=== PATIENT | male | born 1970 | race Caucasian/White ===

== ENCOUNTER → 2017-11-01 | Outpatient (CLI) | payer BC ==
--- NOTE | 2017-11-01 15:42 | XR ---
EXAMINATION TYPE: XR chest 2V DATE OF EXAM: 11/01/2017 COMPARISON: NONE HISTORY: Chest pain TECHNIQUE: Frontal and lateral views of the chest are obtained. FINDINGS: There is no focal air space opacity. No evidence for pneumothorax. No pleural effusion. The cardiac silhouette size is within normal limits. The osseous structures are grossly intact. IMPRESSION: 1. No acute cardiopulmonary process.
== END | disposition home or self-care (01) ==
LOC: RADXRMAIN 15:26
PROVIDERS: ATTEND Orthopaedic Surgery
DX: Z01.818 Encounter for other preprocedural examination (principal)
CPT/HCPCS: 71046

== ENCOUNTER 2017-11-05 06:31 | Day surgery (SDC) | payer BC, OTHER ==
[2017-11-03 17:25] VITALS: BMI 39.4
--- NOTE | 2017-11-04 12:33 | HP ---
HISTORY AND PHYSICAL CHIEF COMPLAINT: Left shoulder pain. 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 He is having persistent pain with overhead use and at night. He notes frequent popping. He has tried therapy with minimal improvement. Currently he is off work. PAST MEDICAL HISTORY: Significant for reflux disease and depression. PAST SURGICAL HISTORY: Significant for previous knee and hand surgery. CURRENT MEDICATIONS: 1. Adipex. 2. Hyzaar. 3. Ibuprofen. 4. Prilosec. 5. Trazodone. He denies drug allergies. FAMILY HISTORY: Significant for cancer. SOCIAL HISTORY: Significant for previous tobacco use; however, he quit in 2007. He also notes previous alcohol use. REVIEW OF SYSTEMS: A 16-point review of systems is otherwise reviewed and is noncontributory. PHYSICAL EXAMINATION: On examination, the patient is approximately 6 foot 3, 380 pounds of endomorphic habitus. HEENT is nonfocal. Neck is supple. On examination of his left shoulder, he is tender about the anterior subacromial space. He has mild subacromial crepitus. He has a Andrea deformity of the left upper biceps. Active range of motion left shoulder , forward elevation 160 degrees, external rotation with the arm at 50 degrees, internal rotation to T12. Motor strength is 5-/5 for external rotation with arm at side , 4+/5 for abduction. Impingement test, Neer tests are positive. Lift off test is negative. Distal neurovascular exam appears intact, otherwise in the left upper extremity. IMPRESSION: 1. Left proximal biceps rupture. 2. Left shoulder probable rotator cuff tear. RECOMMENDATIONS: I talked to the patient at length regarding his condition and treatment options. At this point, he remains quite symptomatic despite conservative measures. He is unable to have an MRI because of severe claustrophobia. He opts to proceed with surgery. We will plan to proceed with arthroscopic evaluation with probable subacromial decompression, rotator cuff debridement versus repair, and biceps debridement. We will likely perform that as an outpatient procedure. This was discussed at length in layman's term. MMODL / IJN: [id number] / [facility] SYSTEMJulien
[~2017-11-05 06:31] MED LIST: DEXAMETHASONE SOD PHOSPHATE 10 MG/ML 1 ML VIAL IV ONE; LACTATED RINGERS 1,000 ML IV SCH; MIDAZOLAM 2 MG/2 ML VIAL IV PRN; ONDANSETRON 4 MG/2 ML VIAL IVP ONE; SCOPOLAMINE 1.5MG/72HR PATCH TRANSDERM ONE; fentaNYL (PF) 50 MCG/ML 2 ML AMP IV PRN
[2017-11-05] MEDS ORDERED: LIDOCAINE 1% 20 ML VIAL (10MG/ML) FOR IV START INTRADERMA ONE (07:13)
[2017-11-05] MEDS ORDERED: MIDAZOLAM 2 MG/2 ML VIAL ONE (08:10)
[2017-11-05] MEDS ORDERED: PROPOFOL 10 MG/ML 20 ML VIAL IV ONE (08:10)
[2017-11-05] MEDS ORDERED: LIDOCAINE 1% INJ 10MG/ML (20 ML MDV) ONE (08:10)
[2017-11-05] MEDS ORDERED: fentaNYL (PF) 50 MCG/ML 2 ML AMP ONE (08:10)
[2017-11-05] MEDS ORDERED: ROCURONIUM BROMIDE 10 MG/ML 10 ML VIAL IV ONE (08:10)
[2017-11-05] MEDS ORDERED: KETOROLAC 30 MG/ML 1 ML VIAL ONE (08:10)
[2017-11-05] MEDS ORDERED: ROPIVACAINE 5 MG/ML 30 ML VIAL ONE (08:10)
[2017-11-05] MEDS ORDERED: GLYCOPYRROLATE 0.2 MG/ML 2 ML VIAL ONE (08:10)
[2017-11-05] MEDS ORDERED: PHENYLEPHRINE-0.9% NACL SYG 1 MG/10 ML SYRINGE ONE (08:10)
[2017-11-05] MEDS ORDERED: NEOSTIGMINE 1 MG/ML 10 ML VIAL ONE (08:10)
--- NOTE | 2017-11-05 09:50 | P.OP ---
Date of Procedure: 11/05/17 Preoperative Diagnosis: Left shoulder impingement/proximal biceps rupture/probable rotator cuff tear Postoperative Diagnosis: 3 cm rotator cuff tear/intra-articular rupture long head of the biceps Procedure(s) Performed: Left shoulder arthroscopic rotator cuff repair/subacromial decompression/biceps debridement Implants: Arthrex 4.75 mm swivel lock anchor 4 Anesthesia: anjelica VELAZQUEZ Surgeon: Latrell Love Pneumatic Jack Operator #1: Mookie Montez Estimated Blood Loss (ml): 10 Pathology: none sent Condition: stable Disposition: PACU Indications for Procedure: The patient is a 47-year-old male who presents with progressive left shoulder pain after a previous injury. He tried conservative measures without significant relief. A discussion of the risks and benefits of operative intervention versus continued conservative measures was made with the patient. He opted to proceed with surgery. Operative risks to include infection, neurovascular injury, development of blood clots, possible tendon rerupture, possible postoperative stiffness and need for subsequent procedures was discussed. Informed consent was obtained. Operative Findings: As below Description of Procedure: The patient was brought to the operating room, and after induction of general anesthesia was placed in a beachchair position. He did have a preoperative interscalene block by anesthesia for postoperative pain control. After induction of general anesthesia, I examined the left shoulder. There was no gross block to passive motion or instability. The left upper extremity was prepped and draped in normal fashion. The bony outlines the acromion, distal clavicle, and coracoid process were outlined with a skin marker. The glenohumeral joint was inflated with 50 mL of saline utilizing a spinal needle from posterior approach. A posterior portal was made through a 5 mm skin incision 1 cm medial and inferior to the posterior lateral border the acromion. A blunt trocar was used to easily into the joint. Diagnostic arthroscopy was performed. An anterior portal was made just lateral to the coracoid process entering the joint above the subscapularis tendon. The subscapularis appeared intact. A rupture of the long head of biceps was noted with residual tissue impinging in the joint. This was debrided with a motorized shaver back to the superior labrum. The superior labrum appeared intact. The anterior labrum was intact. No real degenerative changes were noted involving the glenoid or the humeral head. On inspection the rotator cuff, there was a full-thickness tear involving the supraspinatus and a portion of infraspinatus without significant retraction. The posterior labrum was intact. The inferior recess was inspected. The arthroscope was then placed into the subacromial space. A lateral portal was made through a 5 mm skin incision 2 cm inferior to the anterior lateral border of the acromion. The soft tissue on the undersurface the acromion was debrided with a motorized shaver and electrocautery clearly defining the anterior medial and lateral borders as well as the distal clavicle. The coracoacromial ligament was detached from the anterior acromion with electrocautery. An anterior inferior acromioplasty is performed with a motorized sarika starting anterolateral, then extending this posteriorly, then extending this medially. I was able to convert to a flat acromion. This was verified from the posterior and lateral viewing portals. The rotator cuff was easily localized back to the greater tuberosity. The greater tuberosity was lightly decorticating utilizing a motorized bur down to bleeding bony surface. An accessory superior lateral portals made off the lateral edge of the acromion for anchor placement. The appropriate starting awl was utilized and 4.75 mm swivel lock anchors 2 were inserted in the greater tuberosity with good purchase. #2 fiber tape was then passed to the rotator cuff with a scorpion suture passer. These were then crisscrossed and a lateral row created utilizing 4.75 mm swivel lock anchor 2. I was able to compress the rotator cuff over the saxman footprint. Final arthroscopic view showed adequate repair and compression at the saxman footprint. The arthroscope was then removed. The portals were closed with simple 3-0 nylon suture. A sterile dressing was applied. The patient was then awoken from general anesthesia and transferred to recovery room in good condition. Blood loss was estimated at 10 mL. No complications were incurred. Sponge and needle counts were correct in the case. Vickey GARCIA assisted during the case with arm positioning, anchor placement, and rotator cuff repair.
[2017-11-05 09:55] VITALS: TEMP 98.5
[2017-11-05] MEDS ORDERED: LACTATED RINGERS 1,000 ML IV ONE (10:28)
[2017-11-05 11:02] VITALS: RESP 16
[2017-11-05 11:36] VITALS: BP 134/85; PULSE 88
== END 2017-11-05 11:42 | disposition home or self-care (01) ==
LOC: OR 06:31
PROVIDERS: ATTEND Orthopaedic Surgery
DX: S46.012A Strain of muscle(s) and tendon(s) of the rotator cuff of left shoulder, initial encounter (principal); M75.42 Impingement syndrome of left shoulder; S46.212A Strain of muscle, fascia and tendon of other parts of biceps, left arm, initial encounter; I10 Essential (primary) hypertension; J44.9 Chronic obstructive pulmonary disease, unspecified; K21.9 Gastro-esophageal reflux disease without esophagitis; F32.9 Major depressive disorder, single episode, unspecified; X58.XXXA Exposure to other specified factors, initial encounter; Z87.891 Personal history of nicotine dependence; Z79.899 Other long term (current) drug therapy
CPT/HCPCS: 29827; 29826; 29822; 64415; C1713; C1894; J2250; J1100; J2710; J0690; J2405; J2001; J3010; J1885; J2795; J2370; J2704

== ENCOUNTER → 2018-05-13 | Outpatient (CLI) | payer BC ==
--- NOTE | 2018-05-13 11:38 | ECHOF ---
Referral Reason:I10 Hypertension R60.0 Edema of extremities MEASUREMENTS -------- HEIGHT: 188.0 cm WEIGHT: 151.5 kg BP: RVIDd: 3.0 cm (< 3.3) IVSd: 1.3 cm (0.6 - 1.1) LVIDd: 4.3 cm (3.9 - 5.3) LVPWd: 1.5 cm (0.6 - 1.1) IVSs: 2.2 cm LVIDs: 2.0 cm LVPWs: 2.0 cm Ao Diam: 3.3 cm (2.0 - 3.7) AV Cusp: 2.6 cm (1.5 - 2.6) LA Diam: 3.4 cm (2.7 - 3.8) MV EXCURSION: 16.790 mm (> 18.000) MV EF SLOPE: 90 mm/s (70 - 150) EPSS: 0.6 cm MV E Dwayne: 0.70 m/s MV DecT: 133 ms MV A Dwayne: 0.67 m/s MV E/A Ratio: 1.05 RAP: 5.00 mmHg RVSP: 8.79 mmHg FINDINGS -------- Sinus rhythm. This was a technically difficult study with suboptimal views. The left ventricular size is normal. There is moderate concentric left ventricular hypertrophy. O verall left ventricular systolic function is normal with, an EF between 55 - 60 %. The right ventricle is normal in size. The left atrial size is normal. The right atrial size is normal. Lumason used The aortic valve is trileaflet and appears structurally normal. There is trace mitral regurgitation. Trace tricuspid regurgitation present. The right ventricular systolic pressure, as measured by Dopp ler, is 8.79mmHg. Pulmonic valve appears structurally normal. The aortic root size is normal. IVC Not well visulized. The pericardium is normal. CONCLUSIONS -------- 1. Sinus rhythm. 2. This was a technically difficult study with suboptimal views. 3. The left ventricular size is normal. 4. There is moderate concentric left ventricular hypertrophy. 5. Overall left ventricular systolic function is normal with, an EF between 55 - 60 %. 6. The right ventricle is normal in size. 7. The left atrial size is normal. 8. The right atrial size is normal. 9. Lumason used 10. The aortic valve is trileaflet and appears structurally normal. 11. There is trace mitral regurgitation. 12. Trace tricuspid regurgitation present. 13. The right ventricular systolic pressure, as measured by Doppler, is 8.79mmHg. 14. Pulmonic valve appears structurally normal. 15. The aortic root size is normal. 16. IVC Not well visulized. 17. The pericardium is normal. ELECT[employer]TACTS ADJUSTER: Suad Gongora RDCS
== END | disposition home or self-care (01) ==
LOC: RADECHMAIN 08:22
PROVIDERS: ATTEND Internal Medicine
DX: I51.7 Cardiomegaly (principal); R60.0 Localized edema
CPT/HCPCS: 93306; Q9950

== ENCOUNTER → 2019-02-27 | Outpatient (CLI) | payer BC ==
--- NOTE | 2019-02-27 09:24 | CT ---
EXAMINATION TYPE: CT lumbar spine wo con DATE OF EXAM: 02/27/2019 8:28 AM COMPARISON: Lumbar spine x-ray March 25, 2010 HISTORY: low back pain CT DLP: 2664 mGycm Automated exposure control for dose reduction was used. Unenhanced CT of the lumbar spine was performed. Bone and soft tissue window settings are submitted as well as coronal and sagittal reconstructions. There are 5 lumbar-type vertebra redemonstrated. Alignment is somewhat straightened on sagittal image s. Zcik-mo-gnrxtgom multilevel anterior and lateral spurring. Kdzj-ag-[id number] disc space narrowing L 2-L3 level. Disc herniation L4-L5 level seen sagittal image 41. Vertebral body heights are maintained . Axial images at T12-L1, L1-L2, and L2-L3 levels are thought within normal limits. Axial images at L3-L4 level show broad-based right paracentral disc protrusion and mild facet degener ative changes. There is mild effacement of anterior thecal sac. Neural foramina are patent. Axial images at L4-L5 level show moderate right greater than left facet degenerative changes. There i s broad-based posterior disc protrusion effacing the anterior thecal sac. There is mild bilateral ant erior inferior neural foraminal narrowing. Axial images at L5-S1 level show mild to moderate right greater than left facet degenerative changes. Spinal canal is grossly preserved. Bilateral neural foramina are felt patent. Visualized liver is hypodense relative to spleen consistent with diffuse fatty infiltration. Paraspin al muscle bulk is preserved. IMPRESSION: Multilevel degenerative changes greatest at L4-L5 level as detailed above.
== END | disposition home or self-care (01) ==
LOC: RADCTMAIN 08:10
PROVIDERS: ATTEND Physical Medicine & Rehabilitation
DX: M47.816 Spondylosis without myelopathy or radiculopathy, lumbar region (principal)
CPT/HCPCS: 72131